=== PATIENT | male | born 1980 | race Caucasian/White ===

== ENCOUNTER 2019-12-08 08:33 | Outpatient (CLI) | payer OTHER ==
--- NOTE | 2019-12-08 09:33 | MMO ---
Bilateral MAMMO Bilat Diag [facility]DI+GLO. CLINICAL HISTORY: Patient is 39 years old and is seen for diagnostic exam and palpable abnormality in the right breast at 6 o'clock. The patient has no family history of breast cancer. The patient has no personal history of cancer. VIEWS: The views performed were: bilateral craniocaudal with tomosynthesis; bilateral mediolateral oblique with tomosynthesis; and bilateral mediolateral with tomosynthesis. FILMS COMPARED: The present examination has been compared to a prior imaging study performed at [facility] on 12/08/2019. This study has been interpreted with the assistance of computer-aided detection. MAMMOGRAM FINDINGS: There are scattered fibroglandular densities. There are focal asymmetries seen in the sub-areolar region of both breasts. Evidence for gynecomastia. There are no suspicious masses, suspicious calcifications, or new areas of architectural distortion. IMPRESSION: THERE IS NO MAMMOGRAPHIC EVIDENCE OF MALIGNANCY. EVIDENCE FOR GYNECOMASTIA. RT GREATER THAN LT. THE RESULTS OF THIS EXAM WERE SENT TO THE PATIENT. ACR BI-RADS Category 2 - Benign finding MAMMOGRAPHY NOTE: 1. A negative mammogram report should not delay a biopsy if a dominant of clinically suspicious mass is present. 2. Approximately 10% to 15% of breast cancers are not detected by mammography. 3. Adenosis and dense breasts may obscure an underlying neoplasm. Reported by: NEFTALI BHATT MD Electonically Signed: [id number]
--- NOTE | 2019-12-08 10:22 | ULT ---
RIGHT BREAST ULTRASOUND: HISTORY: Patient presents with some fullness and palpable findings in the subareolar region of the right breas t. There is some heterogeneously echogenic density tissue in the subareolar region of the right breast, evidence for gynecomastia. There are less severe more subtle changes in the left breast also evidenc e for gynecomastia. No evidence for focal mass or other ultrasound evidence for malignancy. IMPRESSION: BIRADS category 2, benign findings. Evidence for bilateral gynecomastia worse on the right side. If the patient develops any new more focal palpable finding in either breast in the future, a followu p mammogram and ultrasound examination at that time should be considered. POS: OFF
== END 2019-12-08 08:34 | disposition home or self-care (01) ==
LOC: BICMAMMO 08:33
PROVIDERS: ATTEND Family Medicine
DX: N63.10 Unspecified lump in the right breast, unspecified quadrant (principal); N62 Hypertrophy of breast
CPT/HCPCS: 77066; G0279